=== PATIENT | male | born 1950 | race Caucasian/White ===

== ENCOUNTER 2016-06-22 14:00 | Inpatient (IN) | payer MEDICARE, BC ==
[~2016-06-22] VITALS: Ht 182.9 cm; Wt 116.9 kg
--- NOTE | ~2016-06-22 | OR ---
PATIENT'S NAME: [facility] AGE: 66 Y [address] ROOM: [address] [place], [place] [address] LOCATION: [facility] ADMIT DATE: 07/13/2016 OR/Procedure Report DISCHARGE DATE: 07/14/2016 FAMILY PHYSICIAN: Trav Mei MD ATTENDING PHYSICIAN: MARQUES WORKMAN SURGEON: Marques Workman DO CHUCK TENDER: DATE OF PROCEDURE: 07/13/2016 Corrected hardware per physician 07/16/16 AO PREOPERATIVE DIAGNOSIS: Right knee degenerative arthritis. POSTOPERATIVE DIAGNOSIS: Right knee degenerative arthritis. OPERATION PERFORMED: Right total knee arthroplasty, cemented tibia and femur using medial parapatellar/subvastus approach. TOURNIQUET TIME: 30 minutes. ANESTHESIA: Spinal with adductor canal block. HARDWARE: Kennedy Persona Knee system and the patient's specific implants. Femur size 12. Tibia size G. Polyethylene size 10, medial congruent. COMPLICATIONS: None. ANTIBIOTICS: Given. TIMEOUT: Performed. 1 gram IV tranexamic acid given on incision, second gram topically at closure. SPECIMENS: None. ESTIMATED BLOOD LOSS: Less than 50 mL. FLUID ADMINISTERED: (See Anesthesia or None). HISTORY: This is a pleasant 66-year-old, has persistent knee pain, has failed conservative therapy including physical therapy, braces, and injections. The patient continues to suffer pain and fails activities of daily living. It is limiting quality of life and ADLs. We had a discussion regarding further treatment options as the patient has failed all conservative care. The patient wished to proceed with total knee arthroplasty. The risks, benefits, goals and potential complications were discussed. The patient had been through the total joint course and reviewed our online resources in [facility] and then given PATIENT'S NAME: [facility] AGE: 66 Y [address] ROOM: [address] [place], [place] [address] LOCATION: [facility] ADMIT DATE: 07/13/2016 OR/Procedure Report DISCHARGE DATE: 07/14/2016 FAMILY PHYSICIAN: Trav Mei MD ATTENDING PHYSICIAN: MARQUES WORKMAN written handout with the explanations, risks, benefits, and potential treatment complications. Consent signed on the chart. The patient understands the risk of implant recalls; potential for infection up to 2% including deep infection, this could result in multiple surgeries of explant antibiotic spacers and third surgery. The patient understands the risk of fractures; neurovascular injury; damage to arteries, nerves, muscles, tendons; loss of motion; pain; potential to develop a DVT, which could lead to pulmonary embolus and even . The patient has been well informed of the treatment options, risks, benefits, and chance of complications. The patient elects to proceed. DESCRIPTION OF PROCEDURE: The patient was brought back to the operating room theater under anesthesia. The patient was prepped and draped in the usual sterile fashion with the leg exsanguinated and tourniquet inflated. A midline incision starting from the medial aspect of the tibial tubercle approximately 3 fingerbreadths above the superior pole of the patella. Medial parapatellar arthrotomy with subvastus approach exposed the deep capsule. The deep medial capsule was elevated off the medial side of the tibia based on whether they are varus or valgus. Fat pad removed with careful attention not to injure the patellar tendon and the anterior horns of the medial and lateral meniscus were removed. ACL was sacrificed and a retractor was placed protecting the medial and lateral collateral ligaments. The distal cutting block put in position. Appropriate resection taken off the distal femur. After confirmed positioning, slope, proximal tibia resected. Careful attention protecting the collateral ligaments, patellar tendon with bicondylar smooth and dual PCL retractor placed to protect the posterior structures. We then placed a spacer block to confirm adequate bony resections with extension gap. Medial and lateral compartments were cleaned out of any meniscus and soft tissue protecting the collaterals, popliteus, and posterior structures. The anterior and posterior chamfer cuts were made confirming no notching anteriorly. Bony osteophytes removed. A trial femur was placed and using a poly, I floated the tibia confirming intact collateral ligaments and good balancing. If any further releases were needed, those were performed. I confirmed there were no posterior osteophytes of the distal femur, floating technique, I marked the position of the tibia. Final preparation of the femur with lug holes drilled. I then removed the trial femur, placed the tibia, and confirmed axial alignment with PSI and the floating technique. Once satisfied, the trial tibial plate was locked into place confirming with drop preston appropriate alignment and slope. The final tibia was drilled and cruciate punch performed. With the trials in place, went through range of motion, confirming excellent stability with varus/valgus stress and good stability at 0, 30, and 90 degrees of motion. I confirmed the patella was well tracking after osteophytes removed. A patelloplasty was performed with no resurfacing. All trials were then removed. The bone was pulsatiled to clean and dry surface. Exparel cocktail using multiple stabs with careful aspiration not to PATIENT'S NAME: JOSIAS CORTES [facility] AGE: 66 Y [address] ROOM: [address] [address] LOCATION: [facility] ADMIT DATE: 07/13/2016 OR/Procedure Report DISCHARGE DATE: 07/14/2016 FAMILY PHYSICIAN: Trav Mei MD ATTENDING PHYSICIAN: MARQUES WORKMAN inject intravascularly, staying away from the lateral compartment as to not cause foot drop. The tibia was placed followed by femur, held in full extension with trial poly. Excess cement removed. Reconfirmed stability with trial poly. If PCL well functioning, I used a high flex medial congruent poly. If PCL at risk for deficiency, a deep-dish polyethylene used. Once the trial poly was removed, confirmed all cement was hardened and excess cement removed. Range of motion confirmed again prior to final poly being locked into place. Aquamantys was used to establish hemostasis with tourniquet deployed. Final poly locked into place. Hemostasis achieved. Wound closure involved #2 Vicryl in a [id number] pattern along the capsulotomy followed by #2 Quill, Monocryl in a simple buried pattern followed by V-Loc Dermabond. Once the Dermabond cured, the staff placed a Mepilex dressing followed by pulling the thigh-high MASSIEL hose over the wound and insulating the skin to prevent soft tissue cold injury from the PolarCare. Please note that SCDs and MASSIEL hose started preop in the recovery room, continued on the nonoperative site to prevent DVT. Sponge and needle counts were reported correct x3. The patient will be followed by hospitalist, allowed to weight bear as tolerated, with encouraged physical therapy. On the day of surgery, continue prophylactic antibiotics for the first 24 hours. Continue DVT prophylaxis with SCDs, foot pumps, and MASSIEL hose. Unless contraindicated, they will start full-strength aspirin within 23 hours and continue for a month. MARQUES WORKMAN DO PH/modl /[id number] Corrected hardware per physician 07/16/16 AO d: 07/13/161950 t: 07/25/16 1305, OPERATIVE SUMMARY
--- NOTE | ~2016-06-22 | CON ---
PATIENT'S NAME: JOSIAS CORTES [facility] AGE: 66 Y [address] ROOM: [place] [address] LOCATION: [facility] ADMIT DATE: 07/13/2016 Consultation DISCHARGE DATE: FAMILY PHYSICIAN: Trav Mei MD ATTENDING PHYSICIAN: LANI RENO DATE OF CONSULTATION: 07/14/2016 REFERRING PHYSICIAN: CARY LAWS MD REASON FOR CARDIOLOGY CONSULT: Bradycardia and EKG changes. HISTORY OF PRESENT ILLNESS: This is a 66-year-old male, here for a right total knee arthroplasty due to degenerative osteoarthritis. This consult was requested due to the patient experiencing bradycardia with heart rates in the mid 40s overnight as well as EKG showing incomplete right bundle-branch block with PVCs. He has a previous history of hypertension and diabetes mellitus. No documented history of coronary artery disease, but he does state he had a stress test done quite a few years ago, but does not know the reason for the testing. At the time of this consult, he denies chest pain, shortness of breath, or palpitations. He does admit to having some dyspnea on exertion, specifically when out working outside for extended periods. He does admit that it takes up to 5 minutes for his shortness of breath to resolve. He also appears to be at risk for obstructive sleep apnea. He denies presyncope or syncope. He also denies nausea, vomiting, or diarrhea. No recent weight changes and no recent fevers or infection. PAST MEDICAL HISTORY: 1. Hypertension. 2. Hyperlipidemia. 3. Osteoarthritis. 4. GERD. 5. Diabetes mellitus type 2. 6. Hypothyroidism. 7. History of skin cancer. 8. Seasonal allergies. PAST SURGICAL HISTORY: 1. Partial thyroidectomy. 2. Right elbow surgery. 3. Left foot surgery. 4. Right ulnar nerve release. 5. Currently, status post a right total knee arthroplasty. PATIENT'S NAME: JOSIAS CORTES [facility] AGE: 66 Y [address] ROOM: [place] [address] LOCATION: [facility] ADMIT DATE: 07/13/2016 Consultation DISCHARGE DATE: FAMILY PHYSICIAN: Trav Mei MD ATTENDING PHYSICIAN: LANI RENO FAMILY HISTORY: The patient's mother had a history of heart disease and had a myocardial infarction in her 60s. She also had hypertension. He is unsure of his father's medical history and no known medical history for his siblings. SOCIAL HISTORY: The patient is a current daily cigarette smoker. He smokes 2 packs per day and has done so for the last 15 years. He also admits to alcohol use 7 days a week and on those days he will have up to 2 drinks at a time. He denies illicit drug use. CURRENT MEDICATIONS: 1. Bactroban 1 gram intranasally twice daily. 2. Bactrim DS one tablet p.o. twice daily. 3. Celebrex 200 mg p.o. twice daily. 4. Colace 100 mg p.o. twice daily. 5. Enteric-coated aspirin 325 mg p.o. daily. 6. Glucophage XR 500 mg p.o. daily. 7. Glucotrol 5 mg p.o. daily. 8. Levothyroxine 88 mcg p.o. daily. 9. Lyrica 75 mg p.o. twice daily. 10. MiraLax 17 grams p.o. twice daily. 11. Norvasc 10 mg p.o. daily. 12. Pepcid 40 mg p.o. daily. 13. Prinivil 40 mg p.o. daily. 14. Multivitamin 1 tablet p.o. daily. 15. Toprol-XL 50 mg p.o. daily in the evening. 16. Tylenol 1000 mg p.o. every 6 hours. 17. NovoLog subcu on a mild sliding scale per a.c. and at bedtime Accu- Cheks. 18. Lotrimin topically twice daily to rash. MEDICATION ALLERGIES: No known medication allergies. REVIEW OF SYSTEMS: Pertinent positive review of systems listed in the HPI. All other review of systems evaluated and negative. PHYSICAL EXAMINATION: VITAL SIGNS: Temperature 98.4, pulse 66, respirations 16, blood pressure 116/65, O2 saturation 98% on 2 L nasal cannula. The patient weighs 116.9 kg. SKIN: [place], warm, and dry. EYES: Sclerae clear. No xanthelasmas. ENT: Oral mucosa is pink and moist. No jugular venous distention. No PATIENT'S NAME: JOSIAS CORTES [facility] AGE: 66 Y [address] ROOM: [address] [address] LOCATION: [facility] ADMIT DATE: 07/13/2016 Consultation DISCHARGE DATE: FAMILY PHYSICIAN: Trav Mei MD ATTENDING PHYSICIAN: LANI RENO carotid bruits. CHEST: Respirations are even and unlabored. LUNGS: Clear to auscultation. HEART: Regular rate and rhythm. Normal S1, S2. No murmurs, rubs, or gallops. ABDOMEN: Soft and nontender, but obese. MUSCULOSKELETAL: Equal muscle strength to upper and lower extremities bilaterally against resistance. EXTREMITIES: Peripheral pulses palpable. No clubbing, cyanosis, or edema. PSYCH: Alert and oriented. Mood and affect are appropriate. IMPRESSION AND PLAN: Per Dr. Aliya Encarnacion. 1. Asymptomatic bradycardia. We will decrease his beta-malik to Toprol-XL 25 mg p.o. daily. No e/o high grade AV block. 2. EKG changes including PVCs and incomplete right bundle-branch block. We will check an echocardiogram to fully evaluate ejection fraction as well as look for wall motion and valvular abnormalities. We will also check electrolytes and renal panel at this time. 3. Hypertension, currently well controlled, but on 3 separate agents including calcium channel malik, FABIÁN inhibitor, and beta-malik. 4. Status post right total knee arthroplasty for degenerative osteoarthritis. We will attempt to get his previous cardiac records from [facility], including his last stress test. He currently shows previous sinus bradycardia with no high-grade AV blocks. He appears to be at high risk for obstructive sleep apnea and recommend workup and possible CPAP for that due to his [id number] hypertension and needing 3 different agents as well as the bradycardia and PVCs. We will follow up with the echocardiogram and continue to monitor, evaluate, and treat as appropriate. Thank you Dr. Laws for this consult. Thank you for allowing [facility] to interact with the care of this patient. SANDRA BARRIOS APRN FOR MD MARY JANE BECKETT/estrada /[id number] d: 07/14/16 1730 t: 07/16/16 1407, CONSULTATION REPORT
--- NOTE | ~2016-06-22 | ECHO ---
Transthoracic Echocardiography Report (TTE) Demographics Patient Name JOSIAS CORTES Date of Study 07/14/2016 Patient Number [id number] Visit Number [id number] Date of 1950 Room Number G3302 Accession Number [id number] Gender Male Age 66 year(s) Referring Sigifredo Beck MD Rubber Production Machine Operator Charles Mendes Physician Yossi Parks MD Physician Interpreting [employer]and[employer] Manager Physician Aliya WRAY Supervising Ordering Physician Yossi Chicas MD/[facility] TECHNICIAN Nurse Stress Rim Buster Conclusions Summary Normal LV/RV size and systolic function. The estimated left ventricular ejection fraction is 55-60%. Mild concentric left ventricular hypertrophy. Diastolic assessment reveals Grade II pseudonormal diastolic function. The left atrium is mildly dilated. No significant valvular abnormalities. Procedure Type of Study TTE procedure:2D Echocardiogram, M-Mode, Doppler , Color Doppler. Procedure Date Date: 07/14/2016 Start: 09:57 AM Study Location: Inpatient Portable Technical Quality: Good visualization Indications:Bradycardia. Patient Status: ROSALINDA Amount - 9 ml HR: 64 bpm M-Mode/2D Measurements LV Diastolic Dimension: 5.56 cm LV Systolic Dimension: 3.49 cm LV Septum Diastolic: 1.22 cm LV PW Diastolic: 1.19 cm AO Root Dimension: 3 cm Cardiac Output: 4.96 l/min LA Dimension: 4.5 cm EF Estimated: 55 % LVOT: 2.1 cm LVOT VTI: 22.4 cm RV Base: 2.91 cm LV Stroke volume: 77.55 ml RV Length: 7.69 cm TAPSE: 2.52 cm TDI-S': 17.3 cm/s Doppler Measurements AV Peak Velocity: 1.55 m/s MV Peak E-Wave: 0.94 m/s AV Peak Gradient: 9.61 mmHg MV Peak A-Wave: 0.8 m/s AV Mean Gradient: 5 mmHg MV E/A Ratio: 1.18 LVOT Peak Velocity: 1.14 m/s MV P1/2t: 62 msec MV Deceleration Time: 218 msec TR Gradient:7.62 mmHg PV Peak Velocity: 1.03 m/s Estimated RAP:3 mmHg PV Peak Gradient: 4.24 mmHg Estimated RVSP: 11 mmHg Estimated PASP: 10.62 mmHg E' Septal Velocity: 0.1 m/s A' Septal Velocity: 0.13 m/s E' Lateral Velocity: 0.07 m/s A' Lateral Velocity: 0.09 m/s Findings Left Ventricle The left ventricle is normal in size . Mild concentric left ventricular hypertrophy. Diastolic assessment reveals Grade II pseudonormal diastolic function. Right Ventricle Normal right ventricle structure and function. Left Atrium The left atrium is mildly dilated. Right Atrium Normal right atrial size. IVC measures 2.02 cm with inspiratory collapse. Mitral Valve Trivial mitral regurgitation by color Doppler. Aortic Valve Normal aortic valve structure and function. Tricuspid Valve Trivial tricuspid regurgitation by color Doppler. Pulmonic Valve Normal pulmonic valve structure and function. Pericardial Effusion No evidence of pericardial effusion. Miscellaneous The ascending aorta maximum diameter measures 3.4 cm. Pleural Effusion No evidence of pleural effusion. Signature dtt: ALIYA PIMENTEL dtd: 07/14/16 0957 Physician Self Edit
[2016-06-28] MEDS ORDERED: GLUCOPHAGE XR500 M1 PO (13:49)
[2016-06-28] MEDS ORDERED: LEVOTHROID (SY88 MCG PO (13:49)
[2016-06-28] MEDS ORDERED: ZESTRIL40 MG PO (13:49)
[2016-06-28] MEDS ORDERED: NORVASC10 MG PO (13:49)
[2016-06-28] MEDS ORDERED: PROTONIX40 MG PO (13:50)
[2016-06-28] MEDS ORDERED: TOPROL XL25 MG PO (13:50)
[2016-06-28] MEDS ORDERED: GLUCOTROL10 MG PO (13:50)
[2016-06-28] MEDS ORDERED: BACTROBAN N1 GM/TUBE NOSE (13:51)
[2016-06-28] MEDS ORDERED: BACTRIM DS1 TAB PO (13:52)
[2016-06-28] MEDS ORDERED: VITAMIN PACK PO (13:55)
[2016-06-28] MEDS ORDERED: ALEVE220 MG PO (13:55)
[2016-07-01] MEDS ORDERED: LOTRIMIN30 GM TOP (11:33)
[2016-07-14 05:31] LABS: HEMATOCRIT 37.8 % (37.0-53.0); HEMOGLOBIN 11.9 g/dL (11.0-16.0)
[2016-07-14 10:02] LABS: ANION GAP 13.4 (10.0-19.0); BLOOD UREA NITROGEN 20 mg/dL (6-24); CALCIUM 8.2 mg/dL (8.5-10.5); CHLORIDE 113 mMol/L (96-110); CO2 24 mMol/L (22-32); CREATININE 1.1 mg/dL (0.6-1.3); ESTIMATED GFR (MDRD EQUATION) > 60; POTASSIUM 5.4 mMol/L (3.7-5.1); SODIUM 145 mMol/L (135-145)
[2016-07-14] MEDS ORDERED: TYLENOL EXTRA500 MG PO (17:15)
[2016-07-14] MEDS ORDERED: ECOTRIN325 MG PO (17:16)
[2016-07-14] MEDS ORDERED: CELEBREX200 MG PO (17:17)
[2016-07-14] MEDS ORDERED: COLACE100 MG PO (17:18)
[2016-07-14] MEDS ORDERED: PEPCID40 MG PO (17:19)
[2016-07-14] MEDS ORDERED: MIRALAX17 GM PO (17:20)
[2016-07-14] MEDS ORDERED: VALIUM5 MG PO (17:21)
[2016-07-14] MEDS ORDERED: LYRICA 75MG CAP75 MG PO (17:21)
[2016-07-14] MEDS ORDERED: DILAUDID 2MG(HYD2 MG PO (17:22)
== END 2016-07-14 18:01 | disposition disaster alternative care site (69) | DRG 470 ==
LOC: G3N 07-13 06:36
PROVIDERS: Nurse Practitioner; ADMIT Orthopaedic Surgery
PROC: 0SRC0J9 Replacement of Right Knee Joint with Synthetic Substitute, Cemented, Open Approach (ICD-10-PCS; principal; 2016-07-13)
PROC: B246ZZZ Ultrasonography of Right and Left Heart (ICD-10-PCS; 2016-07-14)
DX: M17.11 Unilateral primary osteoarthritis, right knee (principal); I10 Essential (primary) hypertension; I45.10 Unspecified right bundle-branch block; I49.3 Ventricular premature depolarization; E11.9 Type 2 diabetes mellitus without complications; E78.5 Hyperlipidemia, unspecified; E89.0 Postprocedural hypothyroidism; G47.33 Obstructive sleep apnea (adult) (pediatric); J30.2 Other seasonal allergic rhinitis; K21.9 Gastro-esophageal reflux disease without esophagitis; Z85.828 Personal history of other malignant neoplasm of skin
CPT/HCPCS: C1713; C1776; J0171; J0690; J0735; J1885; J2001; J2795; J3370; J7030; J7040

== ENCOUNTER → 2016-07-01 | Outpatient (CLI) | payer MEDICARE, BC ==
[~2016-07-01] MED LIST: ALEVE220 MG PO; BACTRIM DS1 TAB PO; BACTROBAN N1 GM/TUBE NOSE; CELEBREX200 MG PO; COLACE100 MG PO; DILAUDID 2MG(HYD2 MG PO; ECOTRIN325 MG PO; GLUCOPHAGE XR500 M1 PO; GLUCOTROL10 MG PO; LEVOTHROID (SY88 MCG PO; LOTRIMIN30 GM TOP; LYRICA 75MG CAP75 MG PO; MIRALAX17 GM PO; NORVASC10 MG PO; PEPCID40 MG PO; PROTONIX40 MG PO; TOPROL XL25 MG PO; TYLENOL EXTRA500 MG PO; VALIUM5 MG PO; VITAMIN PACK PO; ZESTRIL40 MG PO
--- NOTE | ~2016-07-01 | HP ---
PATIENT'S NAME: SOPHIAJOSIAS [facility] AGE: 66 Y [address] ROOM: [place] [address] LOCATION: [facility] ADMIT DATE: 07/01/2016 History & Physical DISCHARGE DATE: FAMILY PHYSICIAN: Biju Larios MD ATTENDING PHYSICIAN: MARQUES WORKMAN DATE OF SERVICE: CHIEF COMPLAINT: Right knee pain. HISTORY OF PRESENT ILLNESS: The patient is a 66-year-old, , white male, who was admitted to the hospital today for elective surgery in his right knee because of the diagnosis of end-stage DJD, right knee. When I see him, he has undergone a successful right total knee arthroplasty per Dr. Marques Workman, orthopedic surgeon. When I see him, he is resting quietly in his bed. His was here for a postop interview. He denies chest pain or shortness of breath. When I see him, he has had no nausea or vomiting. He says his pain is adequately controlled. He does have history of hypertension and wonders if he might have sleep apnea, but has not been on CPAP in the past. MEDICINES: See nurse's notes. ALLERGIES: SEE NURSE'S NOTES. BOTH WERE REVIEWED. SOCIAL HISTORY: He does not smoke. FAMILY HISTORY: Negative for problems with bleeding disorder or general anesthesia. PREVIOUS OPERATIONS: See nurse's database form. IMMUNIZATION STATUS: Unknown. REVIEW OF SYSTEMS: HEENT: No recent change in vision, slurred speech, or sore throat. ENDOCRINE: He is not diabetic nor he does have thyroid disease. PATIENT'S NAME: [facility] AGE: 66 Y [address] ROOM: [place] [address] LOCATION: [facility] ADMIT DATE: 07/01/2016 History & Physical DISCHARGE DATE: FAMILY PHYSICIAN: Biju Larios MD ATTENDING PHYSICIAN: MARQUES WORKMAN LUNGS: No history of asthma. HEART: History of hypertension. GI: No recent nausea, vomiting, or diarrhea. : No dysuria or frequency. EXTREMITIES: As mentioned. NEUROLOGIC: No history of seizure or stroke. PHYSICAL EXAMINATION: GENERAL: Obese male, sitting in bed quietly, oriented to person, place, and time. HEENT: Shows pupils react to light. He is wearing glasses. TMs are not visualized. Posterior pharynx is clear. NECK: Unremarkable. LUNGS: Clear without wheezes or rub. HEART: Shows no murmur or gallop. ABDOMEN: Soft and obese. No palpable mass. PELVIC AND RECTAL: Not done. EXTREMITIES: Show dressing on the right knee and wrapped. NEUROLOGIC: Cranial nerves intact. No lateralizing signs. MENTAL STATUS: Normal postoperatively. He is not depressed or anxious. IMPRESSION: 1. End-stage degenerative joint disease, right knee. 2. Status post right total knee arthroplasty. 3. Exogenous obesity. 4. Hypertension, essential. 5. Rule out obstructive sleep apnea. PLAN: Follow daily. Further treatment as indicated. CARY SETHI MD HARD CANDY SPINNER/modl /[id number] D: [id number] T: [id number] HISTORY & PHYSICAL
== END | disposition disaster alternative care site (69) ==
LOC: GNJRC 06-24 11:00
DX: Z01.812 Encounter for preprocedural laboratory examination (principal); M17.11 Unilateral primary osteoarthritis, right knee

== ENCOUNTER → 2016-12-08 | Outpatient (CLI) | payer MEDICARE, BC | END | disposition disaster alternative care site (69) | LOC: GRAD 11:53 | DX: G89.18 Other acute postprocedural pain (principal); M25.461 Effusion, right knee; I70.90 Unspecified atherosclerosis; Z96.651 Presence of right artificial knee joint ==